=== PATIENT | female | born 1955 | race Caucasian/White ===

== ENCOUNTER 2022-05-15 12:57 | Emergency (ER) | payer MEDICARE, OTHER, SELFPAY ==
[2022-05-15 13:02] VITALS: BP 121/58; PULSE 72; RESP 20; TEMP 36.2; O2SAT 98; BMI 39.9
--- NOTE | 2022-05-15 13:26 | DI.RAD.S_ITS ---
PROCEDURE: XR CHEST 1V INDICATIONS: altered mental status TECHNIQUE: One view of the chest was acquired. COMPARISON: None. FINDINGS: Surgical changes and devices: Implanted cardiac monitoring device overlies the medial left chest inferiorly, and likely is longstanding. Insert after clear, considering reduced inspiratory volume Lungs and pleura: Lungs are clear. No pleural effusions or pneumothorax. Mediastinum: Mediastinal contours appear normal. Heart size is normal. Bones and chest wall: No suspicious bony lesions. Overlying soft tissues appear unremarkable. IMPRESSION: Mildly reduced inspiratory volume, no acute disease. Dictated by: Vinicio Romero M.D. on 05/15/2022 at 13:57 Approved by: Vinicio Romero M.D. on 05/15/2022 at 13:58
[2022-05-15 13:41] LABS: Hematocrit 32.8 % (36-46); Hemoglobin 11.2 g/dL (12.0-16.0); Mean Corpuscular HGB Conc 34.1 % (30-36); Mean Corpuscular Volume 90.8 fL (80-100); Platelet Count 145 X10^3/uL (150-400); Red Blood Cell Count 3.61 X10^6/uL (4.0-5.2); Red Cell Distribution Width 14.6 % (11.6-14.8); White Blood Cell Count 8.4 X10^3/uL (4.5-11.0)
[2022-05-15 13:47] LABS: Alanine Aminotransferase 21 IU/L (<35); Albumin 3.5 g/dL (3.5-5.0); Alkaline Phosphatase 119 U/L (38-126); Aspartate Aminotransferase 38 IU/L (14-36); BUN Creatinine Ratio 22.7 (6-22); Bilirubin Total 1.6 mg/dL (0.2-1.3); Blood Urea Nitrogen 42 mg/dL (7-17); Calcium 8.3 mg/dL (8.4-10.2); Carbon Dioxide 21 mmol/L (22-32); Chloride 89 mmol/L (98-107); Creatine Kinase 174 U/L (30-135); Estimated Glomerular Filt Rate 29 mL/min (>60); Ethanol (ETOH) < 10 mg/dL; Globulin 3.6 g/dL (1.7-4.1); Glucose 145 mg/dL (80-110); HEMOLYSIS < 15 (0-50); Lipase 37 U/L (23-300); Potassium 3.6 mmol/L (3.4-5.1); Sodium 124 mmol/L (137-145); Total Protein 7.1 g/dL (6.3-8.2)
[2022-05-15 13:49] LABS: Add Manual Diff / Slide Review YES
[2022-05-15 13:58] LABS: Troponin I < 0.012 ng/mL (0.01-0.034)
[2022-05-15 14:02] LABS: CKMB % Relative Index 0.5 % (1.5-5.0); Creatine Kinase MB 0.82 ng/mL (<2.37)
--- NOTE | 2022-05-15 14:02 | ED_ITS ---
HPI - Neuro Symptoms/Deficit General Chief Complaint: Neuro Symptoms/Deficit Stated Complaint: Disoriented for 2 days Time Seen by Provider: 05/15/22 13:21 Source: patient Mode of arrival: Ambulatory Limitations: no limitations History of Present Illness HPI Narrative: 67-year-old female. Is a type 2 diabetic. Does have coronary artery disease but has never had a heart attack. No history of stroke. Not on ant icoagulation. [place]. She states that approximately 48 hours ago she would onset of symptoms where she states she was disoriented, problems walking, family states she was not slurring her words but was having issues with answering questions slowly. She was also very tired yesterday. Today symptoms seem to be better than yesterday but she is not back to her baseline. She denies chest pain, vision changes, headache, shortness of breath, nausea vomiting, abdominal pain, numbness or tingling in her extremities. Is having urinary frequency On Anticoagulants: No Related Data Previous Rx's Medication Instructions Recorded albuterol sulfate 90 mcg/actuation 2 puff inhalation Q6H PRN 05/15/22 aerosol inhaler shortness of breath or wheezing #8.5 grams nitrofurantoin 100 mg PO Q12H 5 days #10 caps 05/15/22 monohydrate/macrocrystals 100 mg capsule (Macrobid) Review of Systems Review of Systems ROS Unobtainable: All systems reviewed & are unremarkable except as noted in HPI and below Hematologic/Lymphatic On Anticoagulants: No Patient History Medical History Coronary artery disease Diabetes Social History Smoking Status: Never smoker Smoking Status: Never smoker Substance Use Type: does not use Exam Initial Vital Signs Initial Vital Signs: Vital Signs Temperature 97.1 F L 05/15/22 13:02 Pulse Rate 72 05/15/22 13:02 Respiratory Rate 20 05/15/22 13:02 Blood Pressure 121/58 L 05/15/22 13:02 Pulse Oximetry 98 05/15/22 13:02 Oxygen Delivery Method 05/15/22 13:02 Const General: cooperative, comfortable, well developed and No ill appearing HENAR Head: normal to inspection and normocephalic Face and sinus: normal facial exam Mouth: oral mucosae normal Eyes Pupils: PERRL EOM: EOM intact bilaterally Resp Effort & Inspection: normal respiratory effort Auscultation: clear to auscultation bilaterally Cardio Rate: regular rate Rhythm: regular rhythm GI Inspection: normal to inspection and non-distended Palpation: soft and No tender Skin General: no rashes or lesions noted Neuro General: patient alert, patient awake, patient oriented x3 and moves all extremities Cranial Nerves: CN's II-XI intact bilaterally Cognition: normal cognition Speech: speech normal Sensory Exam: no sensory deficits noted Extrem General: normal to inspection and capillary refill normal Psych Appearance: grossly normal and well kempt Scores GCS [place] coma scale eye opening: Spontaneous [place] coma scale verbal response: Orientated Ru[place]to coma scale motor response: Obey commands [place] coma scale total score: 15 Course Orders Ordered: ED Orders 05/15/22 13:25 Complete Blood Count AUTO DIFF Stat Comprehensive Metabolic Panel Stat Ethanol (ETOH) Stat Lipase Stat Troponin & CK Cardiac Panel Stat 05/15/22 13:26 XR chest 1V Stat EKG-12 Lead Stat 05/15/22 14:03 CT head/brain wo con Stat 05/15/22 14:42 Urinalysis and Microscopic Stat Urine Culture Stat Urine Drug Screen, Rapid Stat Vital Signs Vital signs: Vital Signs - 8 hr 05/15/22 13:02 05/15/22 14:06 05/15/22 14:19 Temperature 97.1 F L Pulse Rate 72 70 Respiratory Rate 20 Blood Pressure 121/58 L 118/56 L Pulse Oximetry 98 99 Oxygen Delivery Method Room Air 05/15/22 14:19 05/15/22 14:30 05/15/22 14:31 Temperature Pulse Rate 78 84 85 Respiratory Rate Blood Pressure Pulse Oximetry 99 99 99 Oxygen Delivery Method 05/15/22 14:31 Temperature Pulse Rate Respiratory Rate Blood Pressure 149/65 H Pulse Oximetry Oxygen Delivery Method MDM - Neuro Symptoms/Deficit Lab Data Attestation: I reviewed the patient's lab results. Result diagrams: 05/15/22 13:25 05/15/22 13:25 Labs: Lab Results 05/15/22 05/15/22 05/15/22 Range/Units 13:25 13:25 14:42 WBC 8.4 (4.5-11.0) X10^3/uL RBC 3.61 L (4.0-5.2) X10^6/uL Hgb 11.2 L (12.0-16.0) g/dL Hct 32.8 L (36-46) % MCV 90.8 (80-100) fL MCH 31.0 (26-34) PG MCHC 34.1 (30-36) % RDW 14.6 (11.6-14.8) % Plt Count 145 L (150-400) X10^3/uL Neut % (Auto) Not Reportable Lymph % (Auto) Not Reportable Wake % (Auto) Not Reportable Eos % (Auto) Not Reportable Baso % (Auto) Not Reportable Lymph # (Auto) Not Reportable Wake # (Auto) Not Reportable Baso # (Auto) Not Reportable Total Counted 100 Seg Neutrophils % 70.0 (38-70) % Band Neutrophils % 4.0 (3-7) % Lymphocytes % (Manual) 6.0 L (25-45) % Atypical Lymphs % 1.0 H ( - 0) % Monocytes % (Manual) 18.0 H (2-11) % Basophils % (Manual) 1.0 (0-1) % Neutrophils # (Manual) 6216 H (6895-9829) /uL RBC Morphology Normal morphology Sodium 124 L (137-145) mmol/L Potassium 3.6 (3.4-5.1) mmol/L Chloride 89 L (98-107) mmol/L Carbon Dioxide 21 L (22-32) mmol/L BUN 42 H (7-17) mg/dL Creatinine 1.85 H (0.52-1.04) mg/dL Estimated GFR 29 L (>60) mL/min BUN/Creatinine Ratio 22.7 H (6-22) Glucose 145 H (80-110) mg/dL Calcium 8.3 L (8.4-10.2) mg/dL Total Bilirubin 1.6 H (0.2-1.3) mg/dL AST 38 H (14-36) IU/L ALT 21 (<35) IU/L Alkaline Phosphatase 119 (38-126) U/L Total Creatine Kinase 174 H (30-135) U/L CK-MB (CK-2) 0.82 (<2.37) ng/mL CK-MB (CK-2) Rel Index 0.5 L (1.5-5.0) % Troponin I < 0.012 (0.01-0.034) ng/mL Total Protein 7.1 (6.3-8.2) g/dL Albumin 3.5 (3.5-5.0) g/dL Globulin 3.6 (1.7-4.1) g/dL Albumin/Globulin Ratio 1.0 (1.0-2.8) Lipase 37 (23-300) U/L Urine Color Urine Appearance Urine pH (4.5-8.0) Ur Specific Irving (1.000-1.035) Urine Protein (Negative) Urine Glucose (UA) (Negative) g/dL Urine Ketones (NEGATIVE) Urine Occult Blood (Negative) Urine Nitrate (Negative) Urine Bilirubin (NEGATIVE) Urine Urobilinogen (0.2) E.U./dL Ur Leukocyte Esterase (NEGATIVE) Urine RBC (0-5/HPF) Urine WBC (0-5/HPF) Ur Squamous Epith Cells (0-5/HPF) Urine Bacteria (None) Ur Culture Indicated? U Opiates 300ng/mL cut Negative (Negative) Ur Oxycodone Screen Negative (Negative) Urine Methadone Screen Negative (Negative) Ur Barbiturates Screen Negative (Negative) U Tricyclic Antidepress Negative (Negative) Ur Phencyclidine Scrn Negative (Negative) Ur Amphetamines Screen Negative (Negative) U Methamphetamines Scrn Negative (Negative) Ur MDMA Scrn (Ecstasy) Negative (Negative) U Benzodiazepines Scrn Negative (Negative) Urine Cocaine Screen Negative (Negative) U Marijuana (THC) Screen Negative (Negative) Ethyl Alcohol < 10 ( - 10) mg/dL 05/15/22 Range/Units 14:42 WBC (4.5-11.0) X10^3/uL RBC (4.0-5.2) X10^6/uL Hgb (12.0-16.0) g/dL Hct (36-46) % MCV (80-100) fL MCH (26-34) PG MCHC (30-36) % RDW (11.6-14.8) % Plt Count (150-400) X10^3/uL Neut % (Auto) Lymph % (Auto) Wake % (Auto) Eos % (Auto) Baso % (Auto) Lymph # (Auto) Wake # (Auto) Baso # (Auto) Total Counted Seg Neutrophils % (38-70) % Band Neutrophils % (3-7) % Lymphocytes % (Manual) (25-45) % Atypical Lymphs % ( - 0) % Monocytes % (Manual) (2-11) % Basophils % (Manual) (0-1) % Neutrophils # (Manual) (4199-4223) /uL RBC Morphology Sodium (137-145) mmol/L Potassium (3.4-5.1) mmol/L Chloride (98-107) mmol/L Carbon Dioxide (22-32) mmol/L BUN (7-17) mg/dL Creatinine (0.52-1.04) mg/dL Estimated GFR (>60) mL/min BUN/Creatinine Ratio (6-22) Glucose (80-110) mg/dL Calcium (8.4-10.2) mg/dL Total Bilirubin (0.2-1.3) mg/dL AST (14-36) IU/L ALT (<35) IU/L Alkaline Phosphatase (38-126) U/L Total Creatine Kinase (30-135) U/L CK-MB (CK-2) (<2.37) ng/mL CK-MB (CK-2) Rel Index (1.5-5.0) % Troponin I (0.01-0.034) ng/mL Total Protein (6.3-8.2) g/dL Albumin (3.5-5.0) g/dL Globulin (1.7-4.1) g/dL Albumin/Globulin Ratio (1.0-2.8) Lipase (23-300) U/L Urine Color Yellow Urine Appearance Sl cloudy Urine pH 6.0 (4.5-8.0) Ur Specific [place] <=1.005 (1.000-1.035) Urine Protein 2+ H (Negative) Urine Glucose (UA) Negative (Negative) g/dL Urine Ketones Negative (NEGATIVE) Urine Occult Blood 2+ H (Negative) Urine Nitrate Negative (Negative) Urine Bilirubin Negative (NEGATIVE) Urine Urobilinogen 0.2 (0.2) E.U./dL Ur Leukocyte Esterase 1+ H (NEGATIVE) Urine RBC 1-5/hpf (0-5/HPF) Urine WBC 10-30/hpf H (0-5/HPF) Ur Squamous Epith Cells 1-5 /hpf (0-5/HPF) Urine Bacteria Many (>30) H (None) Ur Culture Indicated? Specimen cultured U Opiates 300ng/mL cut (Negative) Ur Oxycodone Screen (Negative) Urine Methadone Screen (Negative) Ur Barbiturates Screen (Negative) U Tricyclic Antidepress (Negative) Ur Phencyclidine Scrn (Negative) Ur Amphetamines Screen (Negative) U Methamphetamines Scrn (Negative) Ur MDMA Scrn (Ecstasy) (Negative) U Benzodiazepines Scrn (Negative) Urine Cocaine Screen (Negative) U Marijuana (THC) Screen (Negative) Ethyl Alcohol ( - 10) mg/dL Point of Care Testing Glucose POC 158 Imaging Data Chest x-ray: Radiologist's Impression: [address] [address] XRay Report Signed Patient: Riley Walsh MR#: [id number] : 1955 Acct:[id number] Age/Sex: 67 / F Date of Service: 05/15/22 Loc: ED Accession Number: [id number] ?? Procedure: XR chest 1V Ordering Provider: Miller Ng D.O. PROCEDURE:? XR CHEST 1V ? INDICATIONS:? altered mental status ? TECHNIQUE:? One view of the chest was acquired.? ? COMPARISON:? None. ? FINDINGS:? ? Surgical changes and devices:? Implanted cardiac monitoring device overlies the medial left chest inferiorly, and likely is longstanding.? Insert after clear, considering reduced inspiratory volume ? Lungs and pleura:? Lungs are clear.? No pleural effusions or pneumothorax.? ? Mediastinum:? Mediastinal contours appear normal.? Heart size is normal.? ? Bones and chest wall:? No suspicious bony lesions.? Overlying soft tissues appear unremarkable.? ? IMPRESSION:? Mildly reduced inspiratory volume, no acute disease. ? ? Dictated by: Vinicio Romero M.D. on 05/15/2022 at 13:57 ? ? Approved by: Vinicio Romero M.D. on 05/15/2022 at 13:58 CT scan - head: Radiologist's Impression: [address] [address] [address] Scan Report Signed Patient: Riley Walsh MR#: [id number] : 1955 Acct:[id number] Age/Sex: 67 / F Date of Service: 05/15/22 Loc: ED Accession Number: [id number] ?? Procedure: CT head/brain wo con Ordering Provider: Miller Ng D.O. PROCEDURE:? CT HEAD/BRAIN WO CON ? INDICATIONS:? Confusion ? TECHNIQUE:? Noncontrast 4.5 mm thick angled axial sections acquired from the foramen magnum to the vertex, with coronal and sagittal reformats.? For radiation dose reduction, the following was used:? automated exposure control, adjustment of mA and/or kV according to patient size.? ? COMPARISON:? [facility], CR, XR CHEST 1V, 05/15/2022, 13:31. ? FINDINGS:? Image quality:? This examination is limited by involuntary motion artifact.? ? CSF spaces:? Basal cisterns are patent.? No extra-axial fluid collections.? The ventricles are symmetric in size and shape.? ? Brain:? No intracranial bleeds or masses.? There is cerebral volume loss for age, with resultant ventricular and sulcal prominence.? There are periventricular and deep white matter chronic small vessel ischemic changes.? There is intracranial internal carotid artery atherosclerosis.? ? Skull and face:? Calvarium and visualized facial bones appear intact, without suspicious lesions.? ? Sinuses:? There is [id number] mucosal thickening within the posterior inferior left maxillary sinus.? Mild mucosal thickening is seen within the posterior left ethmoid air cells.? Mild mucosal thickening is seen within the posterior right sphenoid sinus.? Visualized sinuses and mastoids are otherwise clear.? ? ? IMPRESSION:? Motion limited study demonstrating no acute intracranial process. ? No acute intracranial hemorrhage is seen.? ? Scattered paranasal sinus disease noted. ? ? Dictated by: Alex Moser M.D. on 05/15/2022 at 13:27 ? ? Approved by: Alex Moser M.D. on 05/15/2022 at 13:29? ECG Data Attestation: I personally reviewed and interpreted this ECG as follows: Interpretation: Sinus rhythm Ventricular rate is 71 Normal axis Normal QRS Occasional PAC No ST T wave changes MDM Narrative Medical decision making narrative: Nonfocal neurologic exam. GCS 15. Ambulated with her cane. Head CT is unremarkable. EKG is unremarkable. Is having urinary frequency and a UA consistent with a urinary tract infection. This could very well be causing her presenting symptoms. Low suspicion for CVA or TIA given her presenting symptoms. She was given return precautions. Family is at bedside. Will send home with antibiotics. They expressed understanding and agreement. Discharge Plan Departure Patient Disposition: Home Clinical Impression: Urinary tract infection Instructions: DI for Urinary Tract Infection (UTI) Activity Restrictions/Additional Instructions: I do recommend that you take all the antibiotics as directed. You can continue the rest of your medications as directed as well. Return to the emergency department for any new or worsening symptoms. Prescriptions: New albuterol sulfate 90 mcg/actuation HFA aerosol inhaler 2 puff inhalation Q6H PRN (Reason: shortness of breath or wheezing) Qty: 8.5 0RF nitrofurantoin monohyd/m-cryst [Macrobid] 100 mg capsule 100 mg PO Q12H 5 Days Qty: 10 0RF Rx Instructions: must administer with a meal/food Visit Report Forms: Patient Portal/API
--- NOTE | 2022-05-15 14:03 | DI.CT.S_ITS ---
PROCEDURE: CT HEAD/BRAIN WO CON INDICATIONS: Confusion TECHNIQUE: Noncontrast 4.5 mm thick angled axial sections acquired from the foramen magnum to the vertex, with coronal and sagittal reformats. For radiation dose reduction, the following was used: automated exposure control, adjustment of mA and/or kV according to patient size. COMPARISON: [facility], CR, XR CHEST 1V, 05/15/2022, 13:31. FINDINGS: Image quality: This examination is limited by involuntary motion artifact. CSF spaces: Basal cisterns are patent. No extra-axial fluid collections. The ventricles are symmetric in size and shape. Brain: No intracranial bleeds or masses. There is cerebral volume loss for age, with resultant ventricular and sulcal prominence. There are periventricular and deep white matter chronic small vessel ischemic changes. There is intracranial internal carotid artery atherosclerosis. Skull and face: Calvarium and visualized facial bones appear intact, without suspicious lesions. Sinuses: There is [id number] mucosal thickening within the posterior inferior left maxillary sinus. Mild mucosal thickening is seen within the posterior left ethmoid air cells. Mild mucosal thickening is seen within the posterior right sphenoid sinus. Visualized sinuses and mastoids are otherwise clear. IMPRESSION: Motion limited study demonstrating no acute intracranial process. No acute intracranial hemorrhage is seen. Scattered paranasal sinus disease noted. Dictated by: Alex Moser M.D. on 05/15/2022 at 13:27 Approved by: Alex Moser M.D. on 05/15/2022 at 13:29
[2022-05-15 14:06] VITALS: PULSE 70; O2SAT 99
[2022-05-15 14:15] LABS: Neutrophils Absolute Manual 6216 /uL (3000-5900); Total Cells Counted 100
[2022-05-15 14:16] LABS: RBC Morphology Normal Morphology
--- NOTE | 2022-05-15 14:18 | PC.NURSE ---
Family reports that patient is inconsistent with taking her medications per visualization of pill pack. Patient has also had difficult with doing ADLs such as buckling seat belt or getting self off toilet. Patient speech is slow but coherent but cannot describe her own confusion.
[2022-05-15 14:19] VITALS: BP 118/56; PULSE 78; O2SAT 99
[2022-05-15 14:30] VITALS: PULSE 84; O2SAT 99
[2022-05-15 14:31] VITALS: BP 149/65; PULSE 85; O2SAT 99
[2022-05-15 14:52] LABS: Appearance Urine UA SL CLOUDY; Bilirubin Urine UA NEGATIVE (NEGATIVE); Color Urine UA YELLOW; Glucose Urine UA NEGATIVE (Negative); Ketones Urine UA NEGATIVE (NEGATIVE); Leukocyte Esterase Urine UA 1+ (NEGATIVE); Nitrite Urine UA NEGATIVE (Negative); Occult Blood Urine UA 2+ (Negative); Protein Urine UA 2+ (Negative); Specific Gravity Urine UA <=1.005 (1.000-1.035); Urobilinogen Urine UA 0.2 E.U./dL (0.2)
[2022-05-15 14:59] LABS: UR Morphine/Opiate cutoff 300 Negative (Negative); Ur Creatinine Normal (Normal); Ur Specific Gravity Normal (Normal); Urine Amphetamines Negative (Negative); Urine Barbiturates Negative (Negative); Urine Benzodiazepines Negative (Negative); Urine Cocaine Negative (Negative); Urine MDMA Negative (Negative); Urine Methadone Negative (Negative); Urine Methamphetamines Negative (Negative); Urine Oxycodone Negative (Negative); Urine Phencyclidine Negative (Negative); Urine Tetrahydrocannabinol Negative (Negative); Urine Tricyclic Antidepressant Negative (Negative); Urine pH Normal (Normal)
[2022-05-15 15:08] LABS: Bacteria Urine Many (>30); Culture Indicated Urine Specimen Cultured; RBC Urine 1-5/HPF (0-5/HPF); Squamous Epithelial Cell Urine 1-5 /HPF (0-5/HPF); WBC Urine 10-30/HPF (0-5/HPF)
== END 2022-05-15 16:03 | disposition home or self-care (01) ==
PROVIDERS: Emergency Provider Emergency Medicine
DX: N39.0 Urinary tract infection, site not specified (principal); R41.82 Altered mental status, unspecified; I25.10 Atherosclerotic heart disease of native coronary artery without angina pectoris
CPT/HCPCS: 36415; 70450; 71045; 80053; 80305; 80320; 81001; 82550; 82553; 82962; 83690; 84484; 85007; 85025; 87077; 87086; 87186; 93005; 99284